=== PATIENT | female | born 1985 | race African-American/Black ===

== ENCOUNTER 2017-01-29 20:25 | Emergency (ER) | payer BC ==
[~2017-01-29] VITALS: Ht 165.1 cm; Wt 59.0 kg
[2017-01-29 22:06] VITALS: BP 115/66
[2017-01-29] MEDS ORDERED: ALBUTEROL (0.083%) 2.5MG/3ML NEB HHN STA (23:26)
== END 2017-01-30 01:33 | disposition home or self-care (01) ==
LOC: ER 20:35
DX: J06.9 Acute upper respiratory infection, unspecified (principal); R09.81 Nasal congestion
CPT/HCPCS: 71010; 81025; 94640; 99283; J7611

== ENCOUNTER 2017-02-02 08:16 | Emergency (ER) | payer BC ==
[~2017-02-02] VITALS: Ht 165.1 cm; Wt 59.0 kg
[2017-02-02 10:33] VITALS: BP 110/69
== END 2017-02-02 10:45 | disposition home or self-care (01) ==
LOC: ER 08:36
DX: J20.9 Acute bronchitis, unspecified (principal)
CPT/HCPCS: 99283

== ENCOUNTER 2021-08-15 15:59 | Emergency (ER) | payer BC, MEDICAID ==
[~2021-08-15] VITALS: Ht 172.7 cm; Wt 82.0 kg
[2021-08-15] MEDS ORDERED: MORPHINE SULFATE 10 MG/ML CPJ IM ONE (18:15)
[2021-08-15 20:00] VITALS: BP 121/72
[2021-08-15] MEDS ORDERED: OXYC-100 PO (20:35)
[2021-08-15] MEDS ORDERED: IBUP-2028 PO (20:35)
== END 2021-08-15 21:45 | disposition home or self-care (01) ==
LOC: ER 15:59
DX: M79.18 Myalgia, other site (principal); M54.50 Low back pain, unspecified
CPT/HCPCS: 70450; 72100; 96372; 99284; J2270